=== PATIENT | female | born 1985 | race Two or more races ===

== ENCOUNTER 2018-07-16 22:01 | Observation (INO) | payer BC, OTHER ==
[~2018-07-16] VITALS: Ht 167.6 cm; Wt 93.0 kg
[2018-07-16] MEDS ORDERED: TERBUTALINE SULFATE 1 MG/ML 1ML VIAL SC ONE (22:58)
[2018-07-16] MEDS ORDERED: TERBUTALINE SULFATE 1 MG/ML 1ML VIAL SC SCH (23:00)
[2018-07-16] MEDS ORDERED: LACTATED RINGER'S 1,000 ML IV ONE (23:00)
== END 2018-07-16 23:47 | disposition home or self-care (01) | DRG 833 ==
LOC: LDRP 22:01
PROVIDERS: ADMIT Obstetrics & Gynecology; ATTEND Obstetrics & Gynecology
DX: O00.01 Abdominal pregnancy with intrauterine pregnancy (principal); O42.913 Preterm premature rupture of membranes, unspecified as to length of time between rupture and onset of labor, third trimester; Z3A.30 30 weeks gestation of pregnancy
CPT/HCPCS: 59025; 81002; 96372; G0378; J3105; 96361; 96365; 96366